=== PATIENT | male | born 1990 | race African-American/Black ===

== ENCOUNTER 2017-08-04 06:24 | Emergency (ER) | payer MEDICAID ==
[~2017-08-04] VITALS: Ht 177.8 cm; Wt 75.0 kg
[2017-08-04] MEDS ORDERED: ALBU2.5V13 IH (06:28)
[2017-08-04 11:04] VITALS: BP 117/69
== END 2017-08-04 11:06 | disposition home or self-care (01) ==
LOC: ER 06:37
DX: S16.1XXA Strain of muscle, fascia and tendon at neck level, initial encounter (principal); S09.90XA Unspecified injury of head, initial encounter; R55 Syncope and collapse; R53.1 Weakness; M54.5 Low back pain; M54.6 Pain in thoracic spine; V49.9XXA Car occupant (driver) (passenger) injured in unspecified traffic accident, initial encounter; Y93.9 Activity, unspecified; Y92.410 Unspecified street and highway as the place of occurrence of the external cause; J45.909 Unspecified asthma, uncomplicated
CPT/HCPCS: 70450; 72070; 72110; 72125; 99284; Z7610